=== PATIENT | male | born 1965 | race Caucasian/White ===

== ENCOUNTER 2023-01-14 12:56 | Emergency (ER) | payer MEDICAID ==
[~2023-01-14] VITALS: Ht 185.4 cm; Wt 103.4 kg
[2023-01-14] MEDS ORDERED: ACYC200C31 PO (13:11)
[2023-01-14] MEDS ORDERED: BICT1TAB PO (13:11)
[2023-01-14] MEDS ORDERED: HYDROMORPHONE 1 MG/1 ML DISP.SYRIN ONE (13:25)
[2023-01-14] MEDS ORDERED: HYDROMORPHONE 1 MG/1 ML DISP.SYRIN IV ONE (13:30)
[2023-01-14] MEDS ORDERED: IV NORMAL SALINE 1000 ML BAG IV ONE (13:30)
[2023-01-14 13:43] LABS: HEMATOCRIT 45.9 % (36.7-47.1); MEAN CORPUSCULAR HEMOGLOBIN 34.2 uug (23.8-33.4); MEAN CORPUSCULAR VOLUME 97.4 fL (73.0-96.2); PLATELET COUNT (AUTO) 164 K/uL (152-348)
[2023-01-14] MEDS ORDERED: IOHEXOL 300MG/ML 100 ML INFUS..BTL ONE (13:56)
[2023-01-14] MEDS ORDERED: IV NORMAL SALINE 250 ML IV ONE (13:56)
[2023-01-14] MEDS ORDERED: SWABABLE VALVE TRANSFER SET EA MC ONE (13:56)
[2023-01-14 13:57] LABS: BILIRUBIN,DIRECT 0.2 mg/dL (0.0-0.2); BILIRUBIN,TOTAL 0.9 mg/dL (0.2-1.0); CREATININE 1.1 mg/dL (0.6-1.3); POTASSIUM 3.8 mmol/L (3.5-5.1); TOTAL PROTEIN, SERUM 7.5 g/dL (6.4-8.2)
[2023-01-14] MEDS ORDERED: METRONIDAZOLE 500 MG TABLET ONE (14:44)
[2023-01-14] MEDS ORDERED: CIPROFLOXACIN HCL 250 MG TABLET PO ONE (14:45)
[2023-01-14] MEDS ORDERED: METRONIDAZOLE 500 MG TABLET PO ONE (14:45)
[2023-01-14] MEDS ORDERED: KETOROLAC TROMETHAMINE 15 MG INJ ONE (14:45)
[2023-01-14] MEDS ORDERED: CIPROFLOXACIN HCL 250 MG TABLET ONE (14:45)
[2023-01-14] MEDS ORDERED: KETOROLAC TROMETHAMINE 15 MG INJ IVP ONE (14:45)
[2023-01-14] MEDS ORDERED: CIPR500T5 PO (14:47)
[2023-01-14] MEDS ORDERED: METR500T PO (14:47)
[2023-01-14 14:52] LABS: *BILIRUBIN,URIN NEGATIVE (NEGATIVE); *BLOOD, URINE NEGATIVE (NEGATIVE); *CLARITY,URINE CLEAR (CLEAR); *COLOR,URINE YELLOW (YELLOW); *KETONES,URINE NEGATIVE (NEGATIVE); *UROBILINOGEN,URINE 0.2 E.U./dl (NORMAL); LEUKOCYTE ESTERASE ,URINE NEGATIVE (NEGATIVE); NITRITE, URINE NEGATIVE (NEGATIVE); UGLUCOSE TRACE (NEGATIVE)
--- NOTE | 2023-01-14 15:13 | NUR ---
IV removed. Catheter intact and site benign. Pressure and 4x4 gauze applied to site. No bleeding noted. Patient discharged to home by Dr Cabrera in stable condition with brisk steady gait. Written and verbal after care instructions given. Patient verbalize understanding and compliance of instructions. Stressed follow up with primary doctor and GI specialist or return to ER for worsening s/s.
[2023-01-14 15:53] LABS: BACTERIA,URINE FEW /HPF (NONE SEEN); RBC,URINE 0-3 /HPF (0-3); SQUAMOUS EPITHELIAL CELL,UR FEW /HPF (NONE SEEN); WBC,URINE 0-3 /HPF (0-3)
== END 2023-01-14 15:25 | disposition home or self-care (01) ==
LOC: ER 13:00
DX: K57.32 Diverticulitis of large intestine without perforation or abscess without bleeding (principal); Z88.2 Allergy status to sulfonamides; Z79.899 Other long term (current) drug therapy
CPT/HCPCS: 99285; 74177; 96374; 96375; 80076; 80048; 81001; 83690; 85025; 36415; J1885; Q9967; J1170; J7040; A4663

== ENCOUNTER 2023-04-24 12:58 | Emergency (ER) | payer BC, MEDICAID ==
[~2023-04-24] VITALS: Ht 177.8 cm; Wt 85.3 kg
[~2023-04-24 12:58] MED LIST: ACYC200C31 PO; BICT1TAB PO; CIPR500T5 PO; METR500T PO
[2023-04-24] MEDS ORDERED: IV NORMAL SALINE 1000 ML BAG IV ONE (13:45)
[2023-04-24] MEDS ORDERED: ONDANSETRON 4 MG/2 ML VIAL IV ONE (13:45)
[2023-04-24] MEDS ORDERED: MORPHINE SULFATE 2 MG/1 ML DISP.SYRIN IV ONE (13:45)
[2023-04-24] MEDS ORDERED: ONDANSETRON 4 MG/2 ML VIAL ONE (13:49)
[2023-04-24] MEDS ORDERED: MORPHINE SULFATE 4 MG/1 ML DISP.SYRIN ONE (13:49)
[2023-04-24 13:51] LABS: BASOPHILS % (AUTO) 0.5 % (0.0-2.0); EOSINOPHILS # (AUTO) 0.2 K/uL (0.0-0.7); EOSINOPHILS % (AUTO) 2.4 % (0.0-7.0); HEMATOCRIT 46.6 % (36.7-47.1); HEMOGLOBIN 16.6 g/dL (12.5-16.3); LYMPHOCYTES # (AUTO) 2.5 K/uL (0.8-4.8); LYMPHOCYTES % (AUTO) 32.7 % (20.5-51.5); MEAN CORPUSCULAR HEMOGLOBIN 34.4 uug (23.8-33.4); MEAN CORPUSCULAR HGB CONC 36 g/dL (32.5-36.3); MEAN CORPUSCULAR VOLUME 96.6 fL (73.0-96.2); MONOCYTES # (AUTO) 0.8 K/uL (0.1-1.30); MONOCYTES % (AUTO) 9.8 % (0.0-11.0); NEUTROPHILS # (AUTO) 4.2 K/uL (1.8-8.9); NEUTROPHILS % (AUTO) 54.6 % (38.5-71.5); PLATELET COUNT (AUTO) 193 K/uL (152-348); RED BLOOD CELL COUNT(AUTO) 4.83 MIL/uL (4.06-5.63); RED CELL DISTRIBUTION WIDTH 13.3 % (12.1-16.2); WHITE BLOOD COUNT (AUTO) 7.7 K/uL (3.6-10.2)
[2023-04-24 14:11] LABS: DIFFERENTIAL COMMENT 1
[2023-04-24 14:35] LABS: CALCIUM 9.4 mg/dL (8.5-10.1); POTASSIUM 3.9 mmol/L (3.5-5.1)
[2023-04-24 14:43] LABS: ALBUMIN 4.1 g/dL (3.4-5.0); BILIRUBIN,DIRECT 0.2 mg/dL (0.0-0.2); BILIRUBIN,TOTAL 0.5 mg/dL (0.2-1.0); TOTAL PROTEIN, SERUM 7.7 g/dL (6.4-8.2)
[2023-04-24 15:32] LABS: *BILIRUBIN,URIN NEGATIVE (NEGATIVE); *BLOOD, URINE NEGATIVE (NEGATIVE); *CLARITY,URINE CLEAR (CLEAR); *COLOR,URINE YELLOW (YELLOW); *KETONES,URINE NEGATIVE (NEGATIVE); *PROTEIN,URINE 1+ (NEGATIVE); *UROBILINOGEN,URINE 0.2 E.U./dl (NORMAL); LEUKOCYTE ESTERASE ,URINE NEGATIVE (NEGATIVE); NITRITE, URINE NEGATIVE (NEGATIVE); UGLUCOSE NEGATIVE (NEGATIVE)
[2023-04-24] MEDS ORDERED: ONDA4TAB5 PO (15:51)
[2023-04-24 16:13] VITALS: BP 104/80; O2SAT 98
== END 2023-04-24 16:13 | disposition home or self-care (01) ==
LOC: ER 12:58
DX: R10.31 Right lower quadrant pain (principal); R11.0 Nausea; R19.7 Diarrhea, unspecified; Z88.2 Allergy status to sulfonamides; Z79.2 Long term (current) use of antibiotics; Z79.899 Other long term (current) drug therapy
CPT/HCPCS: 99285; 74176; 96374; 96361; 96375; 80076; 80048; 81003; 83690; 85025; 36415; J2405; J2270; J7040; A4663

== ENCOUNTER 2024-06-10 17:41 | Emergency (ER) | payer MEDICAID ==
[~2024-06-10] VITALS: Ht 185.4 cm; Wt 103.4 kg
[~2024-06-10 17:41] MED LIST changes: +ONDA4TAB5 PO
[2024-06-10 18:08] LABS: BASOPHILS # (AUTO) 0.1 K/UL (0.0-0.2); BASOPHILS % (AUTO) 0.6 % (0.0-2.0); EOSINOPHILS # (AUTO) 0.3 K/uL (0.0-0.7); HEMATOCRIT 45.1 % (36.7-47.1); HEMOGLOBIN 15.7 g/dL (12.5-16.3); LYMPHOCYTES # (AUTO) 3.1 K/uL (0.8-4.8); LYMPHOCYTES % (AUTO) 34.8 % (20.5-51.5); MEAN CORPUSCULAR HEMOGLOBIN 33.9 uug (23.8-33.4); MEAN CORPUSCULAR HGB CONC 35 g/dL (32.5-36.3); MEAN CORPUSCULAR VOLUME 97.7 fL (73.0-96.2); MONOCYTES # (AUTO) 0.7 K/uL (0.1-1.30); MONOCYTES % (AUTO) 8.4 % (0.0-11.0); NEUTROPHILS # (AUTO) 4.6 K/uL (1.8-8.9); NEUTROPHILS % (AUTO) 52.2 % (38.5-71.5); PLATELET COUNT (AUTO) 181 K/uL (152-348); RED BLOOD CELL COUNT(AUTO) 4.61 MIL/uL (4.06-5.63); RED CELL DISTRIBUTION WIDTH 13.6 % (12.1-16.2); WHITE BLOOD COUNT (AUTO) 8.8 K/uL (3.6-10.2)
[2024-06-10 18:10] LABS: DIFFERENTIAL COMMENT 1
[2024-06-10 18:14] LABS: *BILIRUBIN,URIN NEGATIVE (NEGATIVE); *BLOOD, URINE NEGATIVE (NEGATIVE); *CLARITY,URINE CLEAR (CLEAR); *COLOR,URINE YELLOW (YELLOW); *KETONES,URINE 1+ (NEGATIVE); *PROTEIN,URINE NEGATIVE (NEGATIVE); *UROBILINOGEN,URINE 0.2 E.U./dl (NORMAL); LEUKOCYTE ESTERASE ,URINE NEGATIVE (NEGATIVE); NITRITE, URINE NEGATIVE (NEGATIVE); PH,URINE 5.5 (5.0-8.0); UGLUCOSE NEGATIVE (NEGATIVE)
[2024-06-10 18:15] LABS: CALCIUM 10.2 mg/dL (8.5-10.1); POTASSIUM 4.1 mmol/L (3.5-5.1)
[2024-06-10 18:17] LABS: RBC,URINE 0-3 /HPF (0-3); WBC,URINE 0-3 /HPF (0-3)
[2024-06-10] MEDS: KETOROLAC TROMETHAMINE 15 MG INJ IVP ONE (18:23)
[2024-06-10] MEDS: IV NORMAL SALINE 1000 ML BAG IV ONE (18:36)
[2024-06-10] MEDS ORDERED: HYDR-3980 PO (19:03)
[2024-06-10 19:28] VITALS: BP 131/88; TEMP 98; O2SAT 97
== END 2024-06-10 19:36 | disposition home or self-care (01) ==
LOC: ER 17:41
DX: R20.2 Paresthesia of skin (principal); E83.52 Hypercalcemia; M54.9 Dorsalgia, unspecified; Z79.899 Other long term (current) drug therapy; Z88.2 Allergy status to sulfonamides
CPT/HCPCS: 99285; 72125; 96374; 96361; 80048; 81001; 85025; 36415; 72128; 72131; J1885; J7040; A4606; A4663

== ENCOUNTER 2024-08-16 18:59 | Emergency (ER) | payer MEDICAID ==
[~2024-08-16] VITALS: Ht 185.4 cm; Wt 103.4 kg
[~2024-08-16 18:59] MED LIST changes: +HYDR-3980 PO
[2024-08-16] MEDS: IV NORMAL SALINE 1000 ML BAG IV ONE (19:45)
[2024-08-16] MEDS: ONDANSETRON 4 MG/2 ML VIAL IV ONE (19:45)
[2024-08-16 20:06] LABS: CALCIUM 9.2 mg/dL (8.5-10.1); CARBON DIOXIDE 29 mmol/L (21-32); CHLORIDE 107 mmol/L (98-107); CREATININE 1.2 mg/dL (0.6-1.3); GLUCOSE 152 mg/dL (74-106); POTASSIUM 4.2 mmol/L (3.5-5.1); SODIUM SERUM 145 mmol/L (136-145); UREA NITROGEN, BLOOD 24 mg/dL (7-18)
[2024-08-16 20:10] LABS: BASOPHILS # (AUTO) 0.1 K/UL (0.0-0.2); BASOPHILS % (AUTO) 0.6 % (0.0-2.0); EOSINOPHILS # (AUTO) 0.3 K/uL (0.0-0.7); EOSINOPHILS % (AUTO) 3.8 % (0.0-7.0); HEMATOCRIT 42.9 % (36.7-47.1); HEMOGLOBIN 15.3 g/dL (12.5-16.3); LYMPHOCYTES # (AUTO) 2.5 K/uL (0.8-4.8); LYMPHOCYTES % (AUTO) 30.5 % (20.5-51.5); MEAN CORPUSCULAR HEMOGLOBIN 34.5 uug (23.8-33.4); MEAN CORPUSCULAR HGB CONC 36 g/dL (32.5-36.3); MONOCYTES # (AUTO) 0.7 K/uL (0.1-1.30); MONOCYTES % (AUTO) 8.4 % (0.0-11.0); NEUTROPHILS # (AUTO) 4.6 K/uL (1.8-8.9); NEUTROPHILS % (AUTO) 56.7 % (38.5-71.5); PLATELET COUNT (AUTO) 179 K/uL (152-348); RED BLOOD CELL COUNT(AUTO) 4.42 MIL/uL (4.06-5.63)
[2024-08-16 20:12] LABS: ALANINE AMINOTRANSFERASE 44 U/L (16-63); ALBUMIN 3.7 g/dL (3.4-5.0); ALKALINE PHOSPHATASE 92 U/L (50-136); ASPARTATE AMINOTRANSFERASE 16 U/L (15-37); BILIRUBIN,DIRECT < 0.1 mg/dL (0.0-0.2); BILIRUBIN,TOTAL 0.3 mg/dL (0.2-1.0); LIPASE 29 U/L (16-77)
[2024-08-16 20:14] LABS: DIFFERENTIAL COMMENT 1
[2024-08-16] MEDS ORDERED: IOHEXOL 300MG/ML 100 ML INFUS..BTL ONE (20:17)
[2024-08-16] MEDS ORDERED: IV NORMAL SALINE 250 ML IV ONE (20:17)
[2024-08-16] MEDS ORDERED: SWABABLE VALVE TRANSFER SET EA MC ONE (20:17)
[2024-08-16 21:23] LABS: *BILIRUBIN,URIN NEGATIVE (NEGATIVE); *BLOOD, URINE NEGATIVE (NEGATIVE); *CLARITY,URINE CLEAR (CLEAR); *COLOR,URINE YELLOW (YELLOW); *KETONES,URINE NEGATIVE (NEGATIVE); *PROTEIN,URINE NEGATIVE (NEGATIVE); *UROBILINOGEN,URINE 0.2 E.U./dl (NORMAL); LEUKOCYTE ESTERASE ,URINE NEGATIVE (NEGATIVE); NITRITE, URINE NEGATIVE (NEGATIVE); PH,URINE 6.5 (5.0-8.0); UGLUCOSE NEGATIVE (NEGATIVE)
[2024-08-16] MEDS ORDERED: HYDROMORPHONE 1 MG/1 ML DISP.SYRIN ONE (21:29)
[2024-08-16] MEDS ORDERED: ONDANSETRON 4 MG/2 ML VIAL ONE (21:29)
[2024-08-16] MEDS: HYDROMORPHONE 1 MG/1 ML DISP.SYRIN IV ONE (21:38)
[2024-08-16] MEDS ORDERED: HYDR-4209 PO (21:41)
[2024-08-16 22:34] VITALS: BP 131/67; TEMP 98.4; O2SAT 99
== END 2024-08-16 22:15 | disposition home or self-care (01) ==
LOC: ER 19:00
DX: R10.30 Lower abdominal pain, unspecified (principal); R06.03 Acute respiratory distress; E11.9 Type 2 diabetes mellitus without complications; F17.210 Nicotine dependence, cigarettes, uncomplicated; Z20.822 Contact with and (suspected) exposure to COVID-19; Z87.442 Personal history of urinary calculi; Z88.2 Allergy status to sulfonamides; Z88.7 Allergy status to serum and vaccine
CPT/HCPCS: 99285; 74177; 96374; 71045; 96361; 96375; 99406; 87426; 80076; 80048; 81003; 83690; 85025; 36415; J2405; Q9967; J1171; A4606; A4663

== ENCOUNTER 2024-10-19 10:03 | Emergency (ER) | payer MEDICAID ==
[~2024-10-19] VITALS: Ht 180.3 cm; Wt 95.3 kg
[~2024-10-19 10:03] MED LIST changes: +HYDR-4209 PO
[2024-10-19] MEDS ORDERED: MORPHINE SULFATE 2 MG/1 ML DISP.SYRIN ONE ×2 (10:09→10:14)
[2024-10-19] MEDS ORDERED: MORPHINE SULFATE 4 MG/1 ML DISP.SYRIN ONE (10:09)
[2024-10-19] MEDS ORDERED: METOCLOPRAMIDE HCL 10 MG/2 ML VIAL ONE (10:09)
[2024-10-19] MEDS: IV NS 1000 ML 1,000 ML IV ONE (10:17)
[2024-10-19] MEDS: MORPHINE SULFATE 4 MG/1 ML DISP.SYRIN IV ONE (10:17)
[2024-10-19] MEDS: METOCLOPRAMIDE HCL 10 MG/2 ML VIAL IV ONE (10:17)
[2024-10-19 10:34] LABS: BASOPHILS % (AUTO) 0.7 % (0.0-2.0); EOSINOPHILS # (AUTO) 0.2 K/uL (0.0-0.7); EOSINOPHILS % (AUTO) 2.5 % (0.0-7.0); HEMATOCRIT 46.7 % (36.7-47.1); HEMOGLOBIN 16.7 g/dL (12.5-16.3); LYMPHOCYTES # (AUTO) 1.9 K/uL (0.8-4.8); LYMPHOCYTES % (AUTO) 29.2 % (20.5-51.5); MEAN CORPUSCULAR HEMOGLOBIN 34.2 uug (23.8-33.4); MEAN CORPUSCULAR HGB CONC 36 g/dL (32.5-36.3); MEAN CORPUSCULAR VOLUME 95.8 fL (73.0-96.2); MONOCYTES # (AUTO) 0.5 K/uL (0.1-1.30); MONOCYTES % (AUTO) 7.6 % (0.0-11.0); NEUTROPHILS # (AUTO) 3.9 K/uL (1.8-8.9); PLATELET COUNT (AUTO) 167 K/uL (152-348); RED BLOOD CELL COUNT(AUTO) 4.88 MIL/uL (4.06-5.63); RED CELL DISTRIBUTION WIDTH 13.1 % (12.1-16.2); WHITE BLOOD COUNT (AUTO) 6.6 K/uL (3.6-10.2)
[2024-10-19 10:37] LABS: *BILIRUBIN,URIN NEGATIVE (NEGATIVE); *CLARITY,URINE CLEAR (CLEAR); *COLOR,URINE YELLOW (YELLOW); *KETONES,URINE NEGATIVE (NEGATIVE); *UROBILINOGEN,URINE 0.2 E.U./dl (NORMAL); LEUKOCYTE ESTERASE ,URINE NEGATIVE (NEGATIVE); NITRITE, URINE NEGATIVE (NEGATIVE); PH,URINE 5.5 (5.0-8.0); UGLUCOSE NEGATIVE (NEGATIVE)
[2024-10-19 10:41] LABS: CALCIUM 9.9 mg/dL (8.5-10.1); CREATININE 1.2 mg/dL (0.6-1.3); POTASSIUM 4.2 mmol/L (3.5-5.1)
[2024-10-19 10:47] LABS: ALBUMIN 4.1 g/dL (3.4-5.0); BILIRUBIN,DIRECT 0.1 mg/dL (0.0-0.2); BILIRUBIN,TOTAL 0.6 mg/dL (0.2-1.0); TOTAL PROTEIN, SERUM 7.5 g/dL (6.4-8.2)
[2024-10-19 11:11] LABS: DIFFERENTIAL COMMENT 1
[2024-10-19 11:25] LABS: *BLOOD, URINE TRACE (NEGATIVE); *PROTEIN,URINE 3+ (NEGATIVE)
[2024-10-19] MEDS ORDERED: OXYC-128 PO (11:54)
[2024-10-19] MEDS ORDERED: TAMS-3 PO (11:54)
[2024-10-19 12:01] LABS: RBC,URINE 0-3 /HPF (0-3); WBC,URINE NONE SEEN /HPF (0-3)
[2024-10-19 12:13] VITALS: BP 137/72; O2SAT 97
== END 2024-10-19 12:14 | disposition home or self-care (01) ==
LOC: ER 10:03
DX: N20.0 Calculus of kidney (principal); R50.9 Fever, unspecified; E11.9 Type 2 diabetes mellitus without complications; F17.200 Nicotine dependence, unspecified, uncomplicated; Z87.442 Personal history of urinary calculi; Z88.2 Allergy status to sulfonamides; Z88.7 Allergy status to serum and vaccine
CPT/HCPCS: 99285; 74176; 96374; 96361 ×2; 96375; 80076; 80048; 81001; 85025; 36415; J2765; J2270 ×2; J7040; A4606; A4663